=== PATIENT | male | born 1995 | race Two or more races ===

== ENCOUNTER 2018-05-03 11:51 | Emergency (ER) | payer SELFPAY ==
[~2018-05-03] VITALS: Ht 185.4 cm; Wt 117.9 kg
[2018-05-03 13:17] LABS: Alcohol, Urine < 3.0 mg/dL (0-5); Amphetamine Screen, Urine NEGATIVE (NEGATIVE); Barbiturate Scree,Urine NEGATIVE (NEGATIVE); Benzodiazephine Screen, Urine NEGATIVE (NEGATIVE); Cannabinoid Screen, Urine POSITIVE (NEGATIVE); Cocaine Screen, Urine NEGATIVE (NEGATIVE); Opiate Scree,Urine NEGATIVE (NEGATIVE); Phencyclidine Screen, Urine NEGATIVE (NEGATIVE)
[2018-05-03 13:30] LABS: Basophils # (auto) 0 uL; Basophils % (auto) 0.4 % (0.0-2.0); Eosinophils # (auto) 0 uL; Eosinophils % (auto) 0.3 % (0.0-7.0); Monocytes # (auto) 0.5 uL; White Blood Cell 9.5 10^3/uL (4.4-10.8)
[2018-05-03 13:31] LABS: Hematocrit 44.5 % (41.0-53.0); Hemoglobin 14.7 g/dL (13.5-17.5); Lymphocytes # (auto) 1.3 uL; Lymphocytes % (auto) 13.6 % (10.0-50.0); Mean Corpuscular Hemoglobin 26.6 pg (28.0-32.0); Mean Corpuscular Hgb Conc. 33.2 g/dL (32.0-36.0); Mean Corpuscular Volume 80.1 fL (80.0-100.0); Monocytes % (auto) 5.5 % (0.0-12.0); Neutrophils # (auto) 7.6 uL; Neutrophils % (auto) 80.2 % (37.0-80.0); Nucleated Red Blood Cells % 0.1 %; Platelet Count (auto) 275 10^3/uL (140-450); Red Blood Cells 5.55 10^6/uL (4.5-5.90); Red Cell Distribution Width 13.1 % (11.8-14.3)
[2018-05-03 13:52] LABS: Alanine Aminotransferase 21 U/L (16-61); Albumin 4.1 g/dL (3.4-5.0); Anion Gap 3 (5-15); Aspartate Aminotransferase 17 U/L (15-37); BUN/Creatinine Ratio 11.3; Blood Urea Nitrogen 11 mg/dL (7-18); Calcium 9.3 mg/dL (8.5-10.1); Carbon Dioxide 27 mmol/L (21-32); Chloride 108 mmol/L (98-107); GFR African American 127 mL/min; GFR Non-African American 105 mL/min; Glucose 104 mg/dL (74-106); Magnesium 2.4 mg/dL (1.6-2.6); Potassium 3.9 mmol/L (3.5-5.1); Sodium 138 mmol/L (136-145)
[2018-05-03 13:57] LABS: Alkaline Phosphatase 105 U/L (45-117); Bilirubin, Total 0.4 mg/dL (0.2-1.0); Total Protein 8.5 g/dL (6.4-8.2)
[2018-05-03 14:13] VITALS: BP 140/57
== END 2018-05-03 14:53 | disposition home or self-care (01) ==
LOC: ER 11:51
DX: R07.89 Other chest pain (principal)
CPT/HCPCS: 36415; 80053; 80307; 83735; 84443; 84484; 85025; 93005

== ENCOUNTER 2022-02-18 10:53 | Emergency (ER) | payer MEDICAID ==
[~2022-02-18] VITALS: Ht 182.9 cm; Wt 120.1 kg
[2022-02-18 11:31] VITALS: BP 138/70
[2022-02-18] MEDS ORDERED: IBUP800T27 PO (11:48)
== END 2022-02-18 11:55 | disposition home or self-care (01) ==
LOC: ER 10:53
DX: S93.402A Sprain of unspecified ligament of left ankle, initial encounter (principal); X50.1XXA Overexertion from prolonged static or awkward postures, initial encounter; Y93.89 Activity, other specified; Y92.89 Other specified places as the place of occurrence of the external cause; Y99.8 Other external cause status
CPT/HCPCS: 73610

== ENCOUNTER 2022-03-30 04:51 | Emergency (ER) | payer MEDICAID ==
[~2022-03-30] VITALS: Ht 182.9 cm; Wt 260.0 kg
[2022-03-30 04:51] VITALS: BP 130/74
[~2022-03-30 04:51] MED LIST: IBUP800T27 PO
[2022-03-30] MEDS ORDERED: PRED20TA2 PO (05:24)
[2022-03-30] MEDS ORDERED: IBUP800T27 PO (05:24)
[2022-03-30] MEDS ORDERED: AMOX-277 PO (05:24)
== END 2022-03-30 06:10 | disposition home or self-care (01) ==
LOC: ER 04:54
DX: J06.9 Acute upper respiratory infection, unspecified (principal); F41.9 Anxiety disorder, unspecified